=== PATIENT | male | born 1960 | race African-American/Black ===

== ENCOUNTER 2024-01-15 08:16 | Outpatient (CLI) | payer OTHER, SELFPAY ==
--- NOTE | 2024-02-03 19:23 | WPDSLEEPSTUD ---
Sleep Study Date of Study: 01/15/24 Ordering Provider: Adam Christensen, Interpreting Physician: Nancie Sow MD Sleep Study Type: Polysomnogram Height: 1.78 m Weight: 149.685 kg Body Mass Index: 47.3 Neck Circumference (inches): 18.5 [place]: 18 Reason for Sleep Study Hypersomnolence Sleep History Israel Hollingsworth is a 63-year-old man with excessive daytime sleepiness. He constantly awakens from sleep feeling short of breath. He constantly wakes at night with heartburn, belching or coughing.??He constantly snores, constantly snores loudly enough that others complain. He constantly has trouble sleeping when he has a cold. He frequently wakes up gasping for breath during the night. He constantly has breathing problems at night. He constantly sweats excessively at night. He constantly notices his heart pounding or beating irregularly during the night. He constantly falls asleep during the day. He frequently falls asleep involuntarily, however never falls asleep while driving. He never experiences loss of muscle tone with strong emotion. He never has daytime difficulty at work due to excessive sleepiness. He never feels paralyzed on waking or falling asleep. He occasionally experiences vivid dreams upon waking or falling asleep. He never feels afraid of going to sleep. He occasionally has nightmares. He frequently recalls his dreams. He rarely has thoughts racing through his mind. He occasionally feels sad or depressed. He frequently feels anxiety. He constantly notices parts of his body jerk. He constantly kicks during the night. He constantly feels crawling or aching feelings in his legs. He constantly feels leg pain at night. He rarely has morning jaw pain, frequently grinds his teeth at night. He occasionally feels bothered by pain during the day, occasionally awakened by pain during the night. He occasionally wakes up feeling stiff in the morning, and he occasionally wakes feeling sore or achy. He occasionally awakens with pain in his neck, spine, or joints. He has fatigue, memory problems, tremors, concentration difficulties, and he takes antacids had frequently. Normal bedtime is between 8:00 p.m. and 10:00 p.m., falling asleep within 5 minute, waking 2 times at night; he wakes to go to the bathroom, may stay awake after getting up to go to the bathroom. His normal wake time is 4:00 a.m.. He estimates getting 7 hours of sleep at night. He sleeps longer on the weekends. He takes naps in the day, and after a 10-15 minute nap may feel refreshed afterwards. He feels better in the morning compared to later in the day. Habits:??Tobacco: Never smoker Caffeine: Yes Alcohol: none Recreational substances: none [facility] Past Medical History Medical History (Updated 02/03/24 @ 20:28 by Nancie Sow MD) Arthritis Asthma Depression GERD (gastroesophageal reflux disease) Gout Hypertension Kidney disorder Obstructive sleep apnea Family History Family History (Updated 02/03/24 @ 20:22 by Nancie Sow MD) Father Heart disease COPD (chronic obstructive pulmonary disease) Social History Social History (Updated 02/03/24 @ 20:23 by Nancie Sow MD) Social History: Disability. 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 Smoking status: Never smoker Alcohol intake: never Substance use: never Medications Medications: acetaminophen 500 mg, 2 capsules q.6 hours p.r.n. pain albuterol 0.5% nebulizer q.6 hours p.r.n. wheezing albuterol sulfate HFA 90 mcg 2 puffs q.4 hours p.r.n. shortness of breath allopurinol 100 mg daily aspirin EC 81 mg daily bumetanide 1 mg daily bupropion XL 150 mg q.day carvedilol 25 mg daily cetirizine 10 mg a day clonidine 0.1 mg b.i.d. diphenhydramine HCL 25 mg 2 tablets q.4 hours p.r.n. sleep docusate 100 mg HS p.r.n. eplerenone 50 mg daily fluticasone propionate 50 mcg 2 sprays nasal daily fluticasone/umeclidinium/vilantero
[2024-02-03 22:42] VITALS: BMI 47.3
== END 2024-01-16 06:35 | disposition home or self-care (01) ==
LOC: ANHCSM 08:19
PROVIDERS: PCP Student in an Organized Health Care Education/Training Program; Visit Provider Student in an Organized Health Care Education/Training Program
DX: G47.33 Obstructive sleep apnea (adult) (pediatric) (principal); E66.01 Morbid (severe) obesity due to excess calories
CPT/HCPCS: 95810